=== PATIENT | female | born 1990 | race Caucasian/White ===

== ENCOUNTER 2016-11-20 20:41 | Inpatient (IN) | payer OTHER ==
[~2016-11-20] VITALS: Ht 149.9 cm; Wt 65.8 kg
[~2016-11-20 20:41] MED LIST: BENTYL 10 MG CA10 MG PO; CIPROFLOXACIN250 M2 PO; PREDNISONE 20MG20 MG PO; VALACYCLOVIR1000 MG PO; VITAMIN C500 M6 PO; ZOFRAN 4 MG TABL4 MG PO; ZOFRAN4 M2 SL
[2016-11-20 22:06] LABS: ABSOLUTE BASOPHIL COUNT 0 /CUMM (0.0-0.2); ABSOLUTE EOSINOPHIL COUNT 0.1 /CUMM (0.0-0.7); ABSOLUTE GRANULOCYTE CT 6.7 /CUMM (1.4-6.5); ABSOLUTE LYMPH COUNT 2.7 /CUMM (1.2-3.4); ABSOLUTE MONOCYTE COUNT 0.4 /CUMM (0.10-0.60); BASOPHIL % 0.4 % (0.0-2.0); GRANULOCYTE % 67.7 % (42.2-75.2); MEAN CORPUSCULAR HGB CONC 32.7 G/DL (33.0-37.0); MEAN CORPUSCULAR VOLUME 73.5 FL (81.0-99.0); MEAN PLATELET VOLUME 9.9 FL (7.4-10.4); PLATELET COUNT 182 /CUMM (130-400); RBC DISTRIBUTION WIDTH 19.2 % (11.5-14.5); RED BLOOD CELL CT 5.17 /CUMM (4.20-5.40); WHITE BLOOD CELL COUNT 9.9 /CUMM (4.8-10.8)
[2016-11-21 09:39] LABS: ABSOLUTE BASOPHIL COUNT 0 /CUMM (0.0-0.2); ABSOLUTE EOSINOPHIL COUNT 0.1 /CUMM (0.0-0.7); ABSOLUTE GRANULOCYTE CT 7.1 /CUMM (1.4-6.5); ABSOLUTE LYMPH COUNT 3.1 /CUMM (1.2-3.4); ABSOLUTE MONOCYTE COUNT 0.5 /CUMM (0.10-0.60); BASOPHIL % 0.5 % (0.0-2.0); EOSINOPHIL % 0.7 % (0-5); GRANULOCYTE % 65.2 % (42.2-75.2); HEMATOCRIT 35.3 % (37-47); MEAN CORPUSCULAR HGB 24.1 PG (27.0-31.0); MEAN CORPUSCULAR HGB CONC 32.7 G/DL (33.0-37.0); MEAN CORPUSCULAR VOLUME 73.7 FL (81.0-99.0); MEAN PLATELET VOLUME 9.7 FL (7.4-10.4); PLATELET COUNT 160 /CUMM (130-400); RBC DISTRIBUTION WIDTH 19.8 % (11.5-14.5); RED BLOOD CELL CT 4.78 /CUMM (4.20-5.40); WHITE BLOOD CELL COUNT 10.8 /CUMM (4.8-10.8)
--- NOTE | 2016-11-21 10:32 | History & Physical ---
General Information and HPI MD Statement: I have seen and personally examined TAMARA PELAYO and documented this H&P. The patient is a 26 year old female at 39 weeks and 1 days gestation who presented with a chief complaint of [LABOR PAIN]. Source of Information: patient, old records Exam Limitations: no limitations History of Present Illness: Pt well known to our practive admitted with elevated BP and proteinuria PIH, questionable roxann restriction. 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 Pt started on MgSO4 and parental analgesia, pitocin started.cx was closed last pm. FHR was reactive now loss of variability secondary to MgSO4 but now aslo loss of reactivity and no reacvtivity from scalp stimulation. caro q 4 min moderate. 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 Last Menstrual Period: unk Estimated Delivery Date: 11/27/2015 Past inside sales account representative History: growth restriction, HTN- induced Medical History Neurological: NONE EENT: NONE Cardiovascular: NONE Respiratory: NONE Gastrointestinal: NONE Hepatic: NONE Renal: NONE Musculoskeletal: NONE Psychiatric: NONE Endocrine: NONE Blood Disorders: NONE Cancer(s): NONE STOPER/Reproductive: NONE Surgical History Pertinent Surgical History: none, N Past Family/Social History Psychosocial History Smoking Status: Current Everyday Smoker Review of Systems Review of Systems Constitutional: Reports: no symptoms. Denies: chills, fever. EENTM: Denies: blurred vision, double vision, visual changes. Cardiovascular: Denies: chest pain, edema. Respiratory: Denies: orthopnea, short of breath. Genitourinary: Reports: no symptoms. Musculoskeletal: Reports: no symptoms. Skin: Denies: lesions. Neurological/Psychological: Denies: anxiety, depressed. Exam & Diagnostic Data Last 24 Hrs of Vital Signs/I&O moderatly elevated labile Bp Intake & Output 11/21 1600 11/21 0800 11/21 0000 Intake Total Output Total Balance Patient 145 lb Weight Obstetric Exam Wgt Gained During : 50# Pelvimetry: seems adequate Dilation (cm): 1 Effacement (%): 50 Station: -2 Membranes: intact Fluid: unknown Fundal Height (cm): 33 Multiple Gestation? No Contractions: Q4 min Infant #1 - FHR Baseline: 140 Category: 2 Estimated Weight: 3200g Presentation: vtx Patient for Induction? No Physical Exam General Appearance Alert, Oriented X3, Cooperative, Mild Distress Skin No Rashes HEENT Atraumatic, PERRLA, Mucous Membr. moist/pink Neck No thryomegaly Cardiovascular Regular Rate Lungs Clear to Auscultation Abdomen Soft Neurological Normal Speech, Strength at 5/5 X4 Ext, reflexes 1+ Extremities minimal edema Labs Blood Type & Rh: O neg Antibody Screen: neg Hct/Hgb & Platelets #1: 37.4/12.1/180 Hct/Hgb & Platelets #2: 35.3/11.1/150 Rubella: imm VDRL #1: nr VDRL #2: nr HbsAg: neg HIV #1: nr HIV #2 nr 1 Hr P Group B Strep: neg Initial Ultrasound: 05/03/2016 10w 2d Anatomy Ultrasound: 07/15/2016 anterior placenta Ultrasound for EFW: 08/10/2016 29%tile Genetic Testing: [id number] normal MSAFP normal Last 24 Hrs of Labs/Jorden: Laboratory Tests 11/21/16 0913: Magnesium Cancelled 11/21/16 0913: Estimated GFR > 60, Uric Acid 7.0 H, Magnesium 5.0 H, AST 25, ALT 34, Lactate Dehydrogenase 445, CBC w Diff NO MAN DIFF REQ, RBC 4.78, MCV 73.7 L, MCH 24.1 L, RDW 19.8 H, MPV 9.7, Gran % 65.2, Lymphocytes % 28.7, Monocytes % 4.9, Eosinophils % 0.7, Basophils % 0.5, Absolute Granulocytes 7.1 H, Absolute Lymphocytes 3.1, Absolute Monocytes 0.5, Absolute Eosinophils 0.1, Absolute Basophils 0, PUBS MCHC 32.7 L 11/21/16 0910: Urine Color YEL, Urine Clarity CLEAR, Urine pH 6.0, Ur Specific [place] 1.025, Urine Protein TRACE H, Urine Ketones NEG, Urine Nitrite NEG, Urine Bilirubin NEG, Urine Urobilinogen 0.2, Ur Leukocyte Esterase NEG, Ur Microscopic SEDIMENT EXAMINED, Urine RBC 25-50 H, Urine WBC RARE, Ur Epithelial Cells RARE, Urine Hemoglobin MOD H, Urine Glucose NEG 11/20/162144: Ur Random Creatinine 17.4, U Random Total Protein 22.1 H, Protein/Creatinin Ratio 1.2 H 11/20/162144: Estimated GFR > 60, Uric Acid 6.3 H, AST 26, ALT 28, Lactate Dehydrogenase 503, CBC w Diff NO MAN DIFF REQ, RBC 5.17, MCV 73.5 L, MCH 24.0 L, RDW 19.2 H, MPV 9.9, Gran % 67.7, Lymphocytes % 27.1, Monocytes % 3.8, Eosinophils % 1.0, Basophils % 0.4, Absolute Granulocytes 6.7 H, Absolute Lymphocytes 2.7, Absolute Monocytes 0.4, Absolute Eosinophils 0.1, Absolute Basophils 0, PUBS MCHC 32.7 L, Urine Opiates Screen < 100.00, Methadone Screen < 40, Barbiturate Screen < 60, Ur Phencyclidine Scrn < 6.00, Amphetamines Screen < 100, U Benzodiazepines Scrn < 85, Urine Cocaine Screen < 50, Urine Cannabis Screen < 5.00, Urine Color YEL, Urine Clarity CLEAR, Urine pH 6.5, Ur Specific [place] 1.010, Urine Protein 30 H, Urine Ketones NEG, Urine Nitrite NEG, Urine Bilirubin NEG, Urine Urobilinogen 0.2, Ur Leukocyte Esterase NEG, Ur Microscopic SEDIMENT EXAMINED, Urine RBC RARE, Urine WBC 1-3 H, Ur Epithelial Cells MOD H, Urine Hemoglobin NEG, Urine Glucose NEG Microbiology 11/21 0410 URINE ROUT: Urine Culture - RECD Assessment/Plan Assessment/Plan: PIH elevated BP and proteinuria , questionable roxann restriction. 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 Pt started on MgSO4 and parental analgesia, pitocin started.cx was closed last pm. FHR was reactive now loss of variability secondary to MgSO4 but now aslo loss of reactivity and no reacvtivity from scalp stimulation. caro q 4 min moderate. Cx only 1cm IMP pt with labile bp nonreactive FHR remote from delivery. recommend primary C/S continue MgSo4 As Ranked By This Provider Problem List: 1. Core Measures/Miscellaneous Venous Thromboembolism VTE Risk Factors: / VTE Contraindications: No Contraindications VTE Prophylaxis Ordered Inpt: Mechanical (ALPS/TEDS) VTE Diagnosis: No Beta Oneil Is Beta Oneil a Home Med? No Antibiotics Is Patient on Antibiotics? No Attending MD Review Statement Attending Statement Attending MD Statement: examined this patient, discussed with family, discussed w/nursing
--- NOTE | 2016-11-21 12:50 | Labor & Delivery Summary ---
Delivery Summary Vaginal Delivery: Vaginal: C/S Section: Section: primary Indication: jEOPARDY Anesthesia: SPINAL Placenta: Placenta: spontanteous, normal, 3 vessel, THICK MECONIUM Anesthesia: block Cord PH Value: 7.29 Baby's Weight: 5# 4OZ Apgars - 1 Min: 9 Apgars - 5 Min: 9 Additional Comments: THICK MECONIUM ANTERIOR PLACENTA ABOVE LOWER SEGMENT GOOD HEMOSTASIS
[2016-11-21 13:03] VITALS: BP 107/62
--- NOTE | 2016-11-21 13:13 | Operative Report ---
Operative/Inv Procedure Report Surgery Date: 11/21/16 Name of Procedure: Primary low transverse section Pre-Operative Diagnosis: PIH, jeopardy Post-Operative Diagnosis: Same Estimated Blood Loss: 300 Surgeon/Hyperbaric Tech: ERIK SINGH,DEEPA HIDALGO MD, KAMI Anesthesia: block Monitors: FHR 135BPM Specimens: PLACENTA Condition: GOOD Operative/Procedure Note Note: After the induction of spinal anesthesia the patient was placed in the left lateral tilt position Lentz catheter was already in place and heart rate was noted to be 134 bpm after testing for adequacy of anesthesia a Pfannenstiel incision was made in the skin and carried down sharply to the fascia hemostasis was achieved with electrocautery. The Fascia was incised in the midline sharply and the incision was carried out laterally sharply. The fascia was divided from the underlying rectus muscles in the superior and inferior direction sharply. The rectus muscle bundles were divided in the midline sharply. A bladder flap was created on the lower uterine segment. The lower uterine segment was entered in the midline sharply and the incision was carried out laterally bluntly. Infant was delivered through thick meconium amnionic fluid vertex position atraumatically cord was doubly clamped and cut and the was handed to the pediatric attendant. The placenta was manually extracted and the interior of the uterus was wiped clean with wet laps. The uterus was externalized. The uterine incision was closed in 2 layers the first a running locking stitch the second an imbricating over the first 0 Polysorb sutures were used after checking for hemostasis the uterus was returned to its normal anatomic position the abdominal/perineal cavity was irrigated copiously once again the uterus was checked for hemostasis which was judged to be excellent. The parietal peritoneum was reapproximated in a simple running fashion with 0 Polysorb suture, subfascial planes were checked for hemostasis which was judged to be excellent. Fascia was then closed with 2 simple running sutures overlapping in the midline. Subcuticular tissues were irrigated copiously and hemostasis was achieved with electrocautery. A subcuticular Jan's fascia which was placed in a simple running fashion of 2-0 Polysorb. The skin was closed with polly. Her uterus was expressed of a small amount of blood. The only drain left at the end of the procedure was a Lentz catheter.
[2016-11-22 08:09] LABS: ABSOLUTE BASOPHIL COUNT 0 /CUMM (0.0-0.2); ABSOLUTE EOSINOPHIL COUNT 0.1 /CUMM (0.0-0.7); ABSOLUTE GRANULOCYTE CT 5.7 /CUMM (1.4-6.5); ABSOLUTE LYMPH COUNT 2.8 /CUMM (1.2-3.4); ABSOLUTE MONOCYTE COUNT 0.4 /CUMM (0.10-0.60); BASOPHIL % 0.3 % (0.0-2.0); EOSINOPHIL % 0.9 % (0-5); GRANULOCYTE % 63.6 % (42.2-75.2); MEAN CORPUSCULAR HGB 24.3 PG (27.0-31.0); MEAN CORPUSCULAR VOLUME 73.6 FL (81.0-99.0); MEAN PLATELET VOLUME 9.6 FL (7.4-10.4); PLATELET COUNT 116 /CUMM (130-400); RBC DISTRIBUTION WIDTH 19.9 % (11.5-14.5); RED BLOOD CELL CT 4.12 /CUMM (4.20-5.40); WHITE BLOOD CELL COUNT 8.9 /CUMM (4.8-10.8)
--- NOTE | 2016-11-22 09:01 | PN- OBGYN ---
Surgical Brief Attending Note Brief Attending Note: Per nursing, doing well. POD 1. +ambulating to chair. Has not yet voided. levine removed this am. tolerating pain and po. No flatus yet. lochia nl per nursing. +bottle feeding. VSSAf BP max 140s/70-80s FF@U, inc c/d/i, appropriately tender ext: no calf tenderness, 1+ pedal edema c/l Laboratory Tests 11/22/16 0645: Kleihauer Cells Pending 11/22/16 0645: CBC w Diff Pending, WBC Pending, RBC Pending, Hgb Pending, Hct Pending, MCV Pending, MCH Pending, RDW Pending, Plt Count Pending, MPV Pending, PUBS MCHC Pending 11/21/16 0913: Magnesium Cancelled 11/21/16 0913: Estimated GFR > 60, Uric Acid 7.0 H, Magnesium 5.0 H, AST 25, ALT 34, Lactate Dehydrogenase 445, CBC w Diff NO MAN DIFF REQ, RBC 4.78, MCV 73.7 L, MCH 24.1 L, RDW 19.8 H, MPV 9.7, Gran % 65.2, Lymphocytes % 28.7, Monocytes % 4.9, Eosinophils % 0.7, Basophils % 0.5, Absolute Granulocytes 7.1 H, Absolute Lymphocytes 3.1, Absolute Monocytes 0.5, Absolute Eosinophils 0.1, Absolute Basophils 0, PUBS MCHC 32.7 L 11/21/16 0910: Urine Color YEL, Urine Clarity CLEAR, Urine pH 6.0, Ur Specific [place] 1.025, Urine Protein TRACE H, Urine Ketones NEG, Urine Nitrite NEG, Urine Bilirubin NEG, Urine Urobilinogen 0.2, Ur Leukocyte Esterase NEG, Ur Microscopic SEDIMENT EXAMINED, Urine RBC 25-50 H, Urine WBC RARE, Ur Epithelial Cells RARE, Urine Hemoglobin MOD H, Urine Glucose NEG 11/20/162144: Ur Random Creatinine 17.4, U Random Total Protein 22.1 H, Protein/Creatinin Ratio 1.2 H 11/20/162144: Estimated GFR > 60, Uric Acid 6.3 H, AST 26, ALT 28, Lactate Dehydrogenase 503, CBC w Diff NO MAN DIFF REQ, RBC 5.17, MCV 73.5 L, MCH 24.0 L, RDW 19.2 H, MPV 9.9, Gran % 67.7, Lymphocytes % 27.1, Monocytes % 3.8, Eosinophils % 1.0, Basophils % 0.4, Absolute Granulocytes 6.7 H, Absolute Lymphocytes 2.7, Absolute Monocytes 0.4, Absolute Eosinophils 0.1, Absolute Basophils 0, PUBS MCHC 32.7 L, Urine Opiates Screen < 100.00, Methadone Screen < 40, Barbiturate Screen < 60, Ur Phencyclidine Scrn < 6.00, Amphetamines Screen < 100, U Benzodiazepines Scrn < 85, Urine Cocaine Screen < 50, Urine Cannabis Screen < 5.00, Urine Color YEL, Urine Clarity CLEAR, Urine pH 6.5, Ur Specific [place] 1.010, Urine Protein 30 H, Urine Ketones NEG, Urine Nitrite NEG, Urine Bilirubin NEG, Urine Urobilinogen 0.2, Ur Leukocyte Esterase NEG, Ur Microscopic SEDIMENT EXAMINED, Urine RBC RARE, Urine WBC 1-3 H, Ur Epithelial Cells MOD H, Urine Hemoglobin NEG, Urine Glucose NEG Microbiology 11/21 1258 URINE ROUT: Urine Culture - CAN Cancelled: DUPLICATE AT 4AM - CANCELLED PER CARMEN THOMAS 11/21 9083 URINE ROUT: Urine Culture - RECD a/p POD 1. Doing well. s/p primary LTCS for PIH, jeopardy. Doing well. BPs stable. Routine pp care. Rho mariely if indicated.
[2016-11-22 09:53] LABS: HEMATOCRIT 30.3 % (37-47)
--- NOTE | 2016-11-23 14:18 | PN- Post Delivery/GYN ---
Subjective Subjective: feeling well Review of Systems Constitutional: Reports: no symptoms. Denies: chills, fever. EENTM: Denies: blurred vision, double vision, visual changes. Cardiovascular: Reports: peripheral edema. Denies: chest pain, orthopena. Respiratory: Denies: cough, short of breath. Gastrointestinal: Denies: diarrhea, nausea, vomiting. Neurological/Psychological: Denies: anxiety, depressed. Objective Last 24 Hrs of Vital Signs/I&O vss Physical Exam General Appearance Alert, Oriented X3, Cooperative, No Acute Distress Cardiovascular Regular Rate Lungs Clear to Auscultation Abdomen Normal Bowel Sounds, Soft, incision clean and dry edema of lower abdominal wall noted Neurological Normal Gait, Normal Speech, Reflexes 2+ Extremities 3+ pedal edema bilaterally Pelvic (FEMALE) lochia serosanganous Current Medications: Current Medications Sig/[place] Start time Last Medication Dose Route Stop Time Status Admin Acetaminophen 650 MG Q4P PRN 11/22 1415 AC PO Diphenhydramine HCl 25 MG Q6P PRN 11/21 1300 AC IV 11/24 1301 Docusate Sodium 100 MG .STK-MED ONE 11/22 2011 DC PO 11/22 2013 Docusate Sodium 100 MG AT BEDTIME PRN 11/21 1300 AC 11/22 PO 2019 Hydromorphone HCl 2 MG Q4P PRN 11/22 2145 AC 11/23 PO 0657 Hydroxyzine HCl 50 MG AT BEDTIME NEED.. 11/22 0000 AC PO 11/25 0001 Ibuprofen 600 MG .STK-MED ONE 11/23 0226 DC PO 11/23 0227 Ibuprofen 600 MG .STK-MED ONE 11/22 2011 DC PO 11/22 2013 Ibuprofen 600 MG Q6P PRN 11/21 1300 AC 11/23 PO 0834 Lactated Ringer's 1,000 ML Q8H 11/21 1300 AC 11/21 IV 2221 Magnesium Hydroxide 30 ML DAILY NEEDED PRN 11/21 1300 AC PO 11/24 1301 Metoclopramide HCl 10 MG Q6P PRN 11/21 1345 AC IV Naloxone HCl 0.2 MG .EVERY 5 MINUTES PRN 11/21 1345 AC IV Oxycodone/ 2 TAB Q4P PRN 11/23 1115 AC 11/23 Acetaminophen PO 1119 Oxycodone/ 1 TAB Q4P PRN 11/21 1300 DC Acetaminophen PO Oxycodone/ 2 TAB Q4P PRN 11/21 1300 DC 11/22 Acetaminophen PO 2019 Assessment/Plan Assessment/Plan pod #2 increasing edema however bp is ok she is voiding well and is asymptomatic dtr's normal Problem List: 1. Attending MD Review Statement Attending Statement Attending MD Statement: examined this patient, discussed with nursing
[2016-11-24] MEDS ORDERED: IBUPROFEN600 M1 PO (11:43)
[2016-11-24] MEDS ORDERED: PERCOCET 5-3251 EACH PO (11:49)
--- NOTE | 2016-11-24 12:44 | PN- OBGYN ---
Surgical Brief Attending Note Brief Attending Note: S: UNWILLING TO GO HOME- Was told by Dr weathers (pedi) in passing that she could stay through PPD #4. Pt with c/o sore pannus - dependent edema. O: Afebrile VSS Abd benign- no HSM nondistended nontender Uterus firm nontender 3 FB below umbilicus Incision clean dry intact. dependent edema of her pannus Lochia avge No CVAT Neg homans bilat 3+ pedal edema Stable POD #3 - pt declines D\C home. due to edematous pannus - start lasix and po KCL daily x 7 days Plan discharge home tomorrow Delfina Sifuentes MD
[2016-11-24] MEDS ORDERED: FUROSEMIDE20 M1 PO (12:47)
[2016-11-24] MEDS ORDERED: FERROUS SULFAT325 M3 PO (12:47)
[2016-11-24] MEDS ORDERED: KLOR-CON 1010 ME1 PO (12:47)
--- NOTE | 2016-11-25 08:57 | PN- OBGYN ---
Surgical Brief Attending Note Brief Attending Note: POD#4 pt is doing well, c/o feet swollen, itching at abdomen, sore pannua, she tolerate diet, void without difficulties. PE: VSS Abdomen: soft, mild tender at lower abdomen, lower pannus edema, skin erythema, uterus firm, fundus below umbilicus. incision staple in place, D/C/I, lochia mild. Ext: edema, DCT (-) A/P: 26yo, s/p PLTCS , POD #4 1. will conntinue laxis for 7 days. 2. encourage ambulation. 3. antiitching cream as needed for skin erythema and itching. 4. f/u in office 1-2 wks for incision check, and PP visit. 5. RT PP care
--- NOTE | 2016-12-06 11:41 | Surgical Discharge Summary ---
Visit Information Visit Dates Admission Date: 11/21/16 Discharge Date: 11/25/16 History of Present Illness Chief Complaint: jeopardy Medical History Neurological: NONE EENT: NONE Cardiovascular: NONE Respiratory: NONE Gastrointestinal: NONE Hepatic: NONE Renal: NONE Musculoskeletal: NONE Psychiatric: NONE Endocrine: NONE Blood Disorders: NONE Cancer(s): NONE COOK ITALIAN STYLE FOOD/Reproductive: NONE Surgical History Pertinent Surgical History: none, N Psychosocial History What is Your Primary Language? Spanish Review of Systems: Patient denies nausea, vomiting, diarrhea, constipation, fevers, or chills. Hospital Course Course Attending Physician: ERIK SINGH,DEEPA Bobby [facility] Course: The patient underwent section with no complications. By postoperative day #1 the Lentz catheter was discontinued the patient was ambulating she was started on a clear liquid diet and was being toward well baby care as well as nursing. By postoperative day #2 the patient was tolerating a regular diet therefore her intravenous was discontinued. She was voiding well her incision was clean and dry she was demonstrating good knowledge of the incision care. Therefore she was discharged home on postoperative day #3 Complications: None Allergies: Coded Allergies: NO KNOWN ALLERGIES (06/30/11) Disposition Summary Disposition Principal Diagnosis: jeopardy status post primary Additional Diagnosis: None Discharge Disposition: home or self care Discharge Instructions General Discharge Information Code Status: Full Code Patient's Diet: Regular Patient's Activity: Pelvic rest no heavy lifting Follow-Up Instructions/Appts: Call immediately for any fevers chills abdominal pain or leaking from the room Medications at Discharge Discharge Medications: Stop taking the following medications: Ascorbate Calcium (Vitamin C) (Unknown Strength) TABLET ORAL DAILY Valacyclovir HCl (Valacyclovir) 1,000 MG TABLET ORAL DAILY Qty = 90 Ondansetron HCl (Zofran) 4 MG TABLET SUBLINGUAL EVERY 4-6 HOURS as needed for NAUSEA Qty = 15 Start taking the following new medications: Ibuprofen (Ibuprofen) 600 MG TABLET 600 Milligram ORAL EVERY SIX HOURS NEEDED as needed for UTERINE CRAMPING Qty = 90 Refills = 6 Comments: Last Taken:11/25/16 Time:0436 Oxycodone HCl/Acetaminophen (Percocet 5-325 MG Tablet) 5 MG-325 MG TABLET 2 Tablet ORAL EVERY 4 HOURS NEEDED as needed for ABDOMINAL PAIN Qty = 30 No Refills Comments: Last Taken:11/25/16 Time:0801 Potassium Chloride (Klor-Con 10) 10 MEQ TABLET.ER 10 Millequivalent ORAL DAILY Qty = 7 No Refills Comments: Last Taken:11/24/16 Time:183 Furosemide (Furosemide) 20 MG TABLET 20 Milligram ORAL DAILY Qty = 7 No Refills Comments: Last Taken:11/24/16 Time:183 Ferrous Sulfate (Ferrous Sulfate) 325 MG (65 MG IRON) TABLET 1 Tablet ORAL DAILY Qty = 30 Refills = 2 Attending MD Review Statement Attending Statement Attending MD Statement: examined this patient, discussed with family, discussed w/nursing
== END 2016-11-25 10:20 | DRG 540 ==
LOC: CBCO 20:41 → GNO 11-21 00:01
PROVIDERS: ADMIT Obstetrics & Gynecology
PROC: 10D00Z1 Extraction of Products of Conception, Low, Open Approach (ICD-10-PCS; principal; 2016-11-21)
DX: O14.94 Unspecified pre-eclampsia, complicating childbirth (principal); Z3A.39 39 weeks gestation of pregnancy; Z37.0 Single live birth
CPT/HCPCS: GNOS; 36415; 81001; 82570; 86920; 86922; 87086; 88307; G0463; G0479; J0131; J0690; J1885; J2270; J2790; J3475; J7120

== ENCOUNTER → 2017-06-07 | Day surgery (SDC) | payer OTHER ==
[~2017-06-07] VITALS: Ht 149.9 cm; Wt 56.2 kg
[~2017-06-07] MED LIST changes: +FERROUS SULFAT325 M3 PO; +FUROSEMIDE20 M1 PO; +IBUPROFEN600 M1 PO; +KLOR-CON 1010 ME1 PO; +PERCOCET 5-3251 EACH PO
--- NOTE | 2017-06-10 20:38 | Operative Report ---
Operative/Inv Procedure Report Surgery Date: 06/07/17 Name of Procedure: Open anterior mesh repair of ventral incisional hernia with bilateral rectus muscle fascial advancement flaps Pre-Operative Diagnosis: Ventral incisional hernia Post-Operative Diagnosis: Same Estimated Blood Loss: scant Surgeon/Sand Bobber: DELVIN SINGH,AMY COWART Anesthesia: general endotracheal tube Operative/Procedure Note Note: Patient was placed on the OR table in the supine position. After successful induction of general anesthesia, another timeout was done, IV antibiotics given, the abdomen was clipped prepped and draped in the usual sterile fashion. The hernia was essentially at and below the umbilicus to the Pfannenstiel incision. measuring about 10 cm long. This attenuated scar was infiltrated local anesthetic and then the long narrow elliptical incision was made with a 10 blade , excising some of the scar. This was deepened with cautery through the subcutaneous fat and the herniated sac, in this case without entering it was dissected circumferentially off the fascia, defining the true edges of the defect, in her we were able to stay preperitoneal, but we needed to clear off beyond the edges of the defect to make room for the mesh. The rectus muscle itself was intact and well-developed, but at this point could not be pulled to the midline without significant tension. After clearing off all the edges we laid the dual sided elliptical ventral X mesh on the bowel, 14 cm. Then we would gently pull remnants of fascia over the mesh and tack it down in multiple places with short runs of 0 Maxon, interrupted 0 Vicryl in interrupted 2-0 Prolene sutures to tack the undersurface of the rectus to the mesh, trying to stay symmetric, some areas especially on the ends we were able to close all the way to the midline and some towards the middle still left mesh exposed. Then to create the advancement flaps I deliberately cut into the rectus sheath anteriorly about an inch off the medial edges all the way around and then you would mobilize that fascia to the midline and close it again with a combination of Maxon Prolene and Vicryl as mentioned above, the rectus muscle was advanced bilaterally to the midline, each side moving 3-4 cm each, covering both the defect and the mesh completely. Then this was covered by sewing together remnants of excised hernia sac and attenuated fascia on top of the muscle reconstruction. The skin was reapproximated with polly having brought it together and a few areas with interrupted 3-0 Vicryl sutures subdermally. This was covered with gauze and tape. EBL minimal lap and sponge counts correct wound expectancy clean IV fluids crystalloid complications none patient tolerated the procedure well was awakened extubated returned to the recovery room in satisfactory condition.
== END ==
LOC: STS 04-26 07:00
DX: K43.2 Incisional hernia without obstruction or gangrene (principal)
CPT/HCPCS: 81025; C1781; C9399; J0131; J0690; J2001; J2250